=== PATIENT | male | born 1990 | race Caucasian/White ===

== ENCOUNTER 2022-01-12 21:17 | Inpatient (IN) | payer MEDICAID, OTHER ==
[~2022-01-12] VITALS: Ht 365.8 cm; Wt 99.4 kg
[2022-01-12] MEDS ORDERED: METF-911 PO (22:19)
[2022-01-12 22:20] LABS: BASOPHILS % (AUTO) 0.3 % (0.0-2.0); HEMATOCRIT 41.8 % (41-53); HEMOGLOBIN 14.7 g/dL (13.5-17.5); LYMPHOCYTES # (AUTO) 2.9 K/uL (1.0-4.8); LYMPHOCYTES % (AUTO) 26.4 % (22.0-44.0); MEAN CORPUSCULAR HEMOGLOBIN 29.4 pg (26.0-34.0); MEAN CORPUSCULAR VOLUME 84 fL (80-100); MONOCYTES # (AUTO) 0.7 K/uL (0.1-1.0); MONOCYTES % (AUTO) 6.7 % (2.0-9.0); NEUTROPHILS # (AUTO) 7.1 K/uL (1.8-7.7); NEUTROPHILS % (AUTO) 65.6 % (40.0-70.0); PLATELET COUNT (AUTO) 248 K/uL (150-450); RED BLOOD CELL COUNT(AUTO) 4.99 MIL/uL (4.50-5.90); RED CELL DISTRIBUTION WIDTH 13.3 % (11.5-14.5)
[2022-01-12] MEDS ORDERED: EMPA25TA PO (22:21)
[2022-01-12] MEDS ORDERED: LISI-894 PO (22:27)
[2022-01-12] MEDS ORDERED: GLIP10 PO (22:27)
[2022-01-12] MEDS ORDERED: DIVA-80 PO (22:27)
[2022-01-12] MEDS ORDERED: BENZ2TAB76 PO (22:27)
[2022-01-12] MEDS ORDERED: ATOR20TA86 PO (22:27)
[2022-01-12] MEDS ORDERED: QUET300T5 PO (22:27)
[2022-01-12] MEDS ORDERED: METO-558 PO (22:27)
[2022-01-12 22:29] LABS: ANION GAP 11 mmol/L (8-16); CARBON DIOXIDE 26 mmol/L (22-29); CHLORIDE 99 mmol/L (98-107); CREATININE 1.08 mg/dL (0.60-1.30); GLOMERULAR FILTR. RATE CALC > 60 mL/min (>60); GLUCOSE,RANDOM 230 mg/dL (70-110); POTASSIUM 3.4 mmol/L (3.5-5.1); SODIUM SERUM 136 mmol/L (136-145); UREA NITROGEN, BLOOD 10 mg/dL (7-18)
[2022-01-12 22:40] LABS: ALANINE AMINOTRANSFERASE 40 U/L (12-78); ALBUMIN 4.4 g/dL (3.4-5.0); ALKALINE PHOSPHATASE 83 U/L (46-116); ASPARTATE AMINOTRANSFERASE 17 U/L (15-37); BILIRUBIN,TOTAL 1.3 mg/dL (0.1-1.0); TOTAL PROTEIN, SERUM 8.3 g/dL (6.4-8.2)
[2022-01-12 22:46] LABS: COVID AG,FIA SOURCE NASAL SWAB
[2022-01-12 22:49] LABS: APPEARANCE,URINE CLEAR (CLEAR); BILIRUBIN,URINE NEGATIVE (NEGATIVE); GLUCOSE, URINE (UA) >=1000 mg/dL (NEGATIVE); KETONES,URINE TRACE mg/dL (NEGATIVE); LEUKOCYTE ESTERASE ,URINE NEGATIVE (NEGATIVE); NITRATE,URINE NEGATIVE (NEGATIVE); OCCULT BLOOD,URINE NEGATIVE (NEGATIVE); PROTEIN,URINE NEGATIVE (NEGATIVE); SPECIFIC GRAVITIY, URINE 1.029 (1.003-1.030); UROBILINOGEN,URINE <=1.0 mg/dL (<=1.0)
[2022-01-12 23:04] LABS: AMPHET/METH SCREEN,URINE NEGATIVE (NEGATIVE); BARBITURATE SCREEN, URINE NEGATIVE (NEGATIVE); BENZODIAZEPINES SCREEN,URINE NEGATIVE (NEGATIVE); CANNABINOID SCREEN,URINE NEGATIVE (NEGATIVE); COCAINE SCREEN,URINE NEGATIVE (NEGATIVE); METHADONE SCREEN, URINE NEGATIVE (NEGATIVE); OPIATE SCREEN,URINE NEGATIVE (NEGATIVE); PHENCYCLIDINE SCREEN,URINE NEGATIVE (NEGATIVE)
[2022-01-12 23:07] LABS: BACTERIA,URINE None Seen /HPF (None Seen); RBC,URINE None Seen /HPF (0-2); WBC,URINE None Seen /HPF (0-5)
[2022-01-13] MEDS ORDERED: LORazepam 1 MG TABLET PO ONE
[2022-01-13] MEDS ORDERED: QUEtiapine FUMARATE 100 MG TABLET PO ONE
[2022-01-13] MEDS ORDERED: ZOLPIDEM TARTRATE 10 MG TABLET PO PRN (01:00)
[2022-01-13] MEDS ORDERED: HALOPERIDOL 5 MG TABLET PO PRN (01:00)
[2022-01-13] MEDS ORDERED: LORazepam 2 MG TABLET PO PRN (01:00)
[2022-01-13 06:03] VITALS: BP 138/84
[2022-01-13 08:00] VITALS: BP 108/72
[2022-01-13] MEDS: METOPROLOL SUCCINATE 50 MG ER TABLET PO SCH (08:53)
[2022-01-13] MEDS: ATORVASTATIN CALCIUM 20 MG TABLET PO SCH (08:53)
[2022-01-13] MEDS: LISINOPRIL 20 MG TABLET PO SCH (08:53)
[2022-01-13] MEDS: GlipiZIDE 10 MG TABLET PO SCH (08:54)
[2022-01-13] MEDS: MetFORMIN HCL 500 MG ER TABLET PO SCH ×2 (08:54→17:32)
[2022-01-13] MEDS ORDERED: DIVALPROEX SODIUM 500 MG ER TABLET PO SCH (09:00)
[2022-01-13 16:44] VITALS: BP 104/77
[2022-01-13] MEDS: DIVALPROEX SODIUM 500 MG DR TABLET PO SCH (20:35)
[2022-01-13] MEDS: QUEtiapine FUMARATE 300 MG TABLET PO SCH (20:35)
[2022-01-13] MEDS ORDERED: POTASSIUM CHLORIDE 20 MEQ ER TABLET PO ONE ×2 (21:15)
[2022-01-13] MEDS ORDERED: MAG HYDROX/AL HYDROX/SIMETH ES 30 ML SUSPENSION UDCUP PO PRN (21:15)
[2022-01-13] MEDS ORDERED: ONDANSETRON HCL 4 MG TABLET PO PRN (21:15)
[2022-01-13] MEDS ORDERED: MAGNESIUM HYDROXIDE SUSPENSION 30 ML UDCUP PO PRN (21:15)
[2022-01-13] MEDS ORDERED: IBUPROFEN 600 MG TABLET PO PRN (21:15)
[2022-01-13] MEDS ORDERED: ACETAMINOPHEN 325 MG TABLET PO PRN (21:15)
[2022-01-13] MEDS ORDERED: CloNIDine HCL 0.1 MG TABLET PO PRN (21:15)
[2022-01-13] MEDS ORDERED: BACITRACIN 28 GM OINTMENT TP PRN (21:15)
[2022-01-13] MEDS ORDERED: ALBUTEROL SULFATE HFA 90 MCG/PUFF 8 GM INHALER IH PRN (21:15)
[2022-01-13] MEDS ORDERED: BENZOCAINE/MENTHOL LOZENGE PO PRN (21:15)
[2022-01-13] MEDS ORDERED: DEXTROSE 50%-WATER 25 GM/50 ML SYRINGE IVP PRN (21:15)
[2022-01-13] MEDS ORDERED: LOPERAMIDE HCL 2 MG CAPSULE PO PRN (21:15)
[2022-01-13] MEDS ORDERED: OMEPRAZOLE 20 MG CAPSULE PO PRN (21:15)
[2022-01-13] MEDS ORDERED: PETROLATUM,WHITE 28 GM JELLY TP PRN (21:15)
[2022-01-13] MEDS ORDERED: DOCUSATE SODIUM 100 MG CAPSULE PO PRN (21:15)
[2022-01-14 06:26] LABS: GLUCOMETER DEV NAME(LOC) 3EX.; GLUCOSE,POINT OF CARE 93 MG/DL (70-110)
[2022-01-14] MEDS: INSULIN LISPRO 100 UNITS/ML SQ PRN (06:48)
[2022-01-14] MEDS: GlipiZIDE 10 MG TABLET PO SCH (06:48)
[2022-01-14] MEDS: MetFORMIN HCL 500 MG ER TABLET PO SCH ×2 (06:48→17:08)
[2022-01-14] MEDS: ATORVASTATIN CALCIUM 20 MG TABLET PO SCH (09:17)
[2022-01-14] MEDS: DIVALPROEX SODIUM 500 MG DR TABLET PO SCH ×2 (09:17→20:27)
[2022-01-14] MEDS: METOPROLOL SUCCINATE 50 MG ER TABLET PO SCH (09:17)
[2022-01-14] MEDS: LISINOPRIL 20 MG TABLET PO SCH (09:17)
[2022-01-14 09:23] VITALS: BP 117/78
[2022-01-14 12:36] LABS: GLUCOMETER DEV NAME(LOC) 3EX.; GLUCOSE,POINT OF CARE 95 MG/DL (70-110)
[2022-01-14 16:44] VITALS: BP 100/74
[2022-01-14 17:21] LABS: GLUCOMETER DEV NAME(LOC) 3EX.; GLUCOSE,POINT OF CARE 115 MG/DL (70-110)
[2022-01-14] MEDS: QUEtiapine FUMARATE 300 MG TABLET PO SCH (20:27)
[2022-01-15 06:16] LABS: GLUCOMETER DEV NAME(LOC) 3EX.; GLUCOSE,POINT OF CARE 115 MG/DL (70-110)
[2022-01-15] MEDS: MetFORMIN HCL 500 MG ER TABLET PO SCH ×2 (07:01→17:56)
[2022-01-15] MEDS: GlipiZIDE 10 MG TABLET PO SCH (07:01)
[2022-01-15] MEDS: INSULIN LISPRO 100 UNITS/ML SQ PRN (07:04)
[2022-01-15] MEDS: DIVALPROEX SODIUM 500 MG DR TABLET PO SCH ×2 (08:28→20:32)
[2022-01-15] MEDS: ATORVASTATIN CALCIUM 20 MG TABLET PO SCH (08:28)
[2022-01-15] MEDS: LISINOPRIL 20 MG TABLET PO SCH (08:28)
[2022-01-15] MEDS: METOPROLOL SUCCINATE 50 MG ER TABLET PO SCH (09:09)
[2022-01-15 09:57] VITALS: BP 121/66
[2022-01-15 20:26] LABS: GLUCOMETER DEV NAME(LOC) 3EX.; GLUCOSE,POINT OF CARE 101 MG/DL (70-110)
[2022-01-15] MEDS: QUEtiapine FUMARATE 300 MG TABLET PO SCH (20:32)
[2022-01-16] MEDS: INSULIN LISPRO 100 UNITS/ML SQ PRN ×2 (06:25→06:43)
[2022-01-16] MEDS: GlipiZIDE 10 MG TABLET PO SCH (06:25)
[2022-01-16 06:31] LABS: GLUCOMETER DEV NAME(LOC) 3EX.; GLUCOSE,POINT OF CARE 102 MG/DL (70-110)
[2022-01-16] MEDS: MetFORMIN HCL 500 MG ER TABLET PO SCH ×2 (06:43→17:30)
[2022-01-16] MEDS: ATORVASTATIN CALCIUM 20 MG TABLET PO SCH (08:38)
[2022-01-16] MEDS: DIVALPROEX SODIUM 500 MG DR TABLET PO SCH ×2 (08:38→20:02)
[2022-01-16] MEDS: LISINOPRIL 20 MG TABLET PO SCH (09:00)
[2022-01-16] MEDS: METOPROLOL SUCCINATE 50 MG ER TABLET PO SCH (09:00)
[2022-01-16 11:51] LABS: GLUCOMETER DEV NAME(LOC) 3EX.; GLUCOSE,POINT OF CARE 72 MG/DL (70-110)
[2022-01-16 16:00] VITALS: BP 111/66
[2022-01-16 17:42] LABS: GLUCOMETER DEV NAME(LOC) 3EX.; GLUCOSE,POINT OF CARE 108 MG/DL (70-110)
[2022-01-16] MEDS ORDERED: QUET300T19 PO (17:45)
[2022-01-16] MEDS ORDERED: DIVA-112 PO (17:45)
[2022-01-16] MEDS: QUEtiapine FUMARATE 300 MG TABLET PO SCH (20:02)
[2022-01-16 20:36] LABS: GLUCOMETER DEV NAME(LOC) 3EX.; GLUCOSE,POINT OF CARE 106 MG/DL (70-110)
[2022-01-17] MEDS: INSULIN LISPRO 100 UNITS/ML SQ PRN (06:52)
[2022-01-17] MEDS: GlipiZIDE 10 MG TABLET PO SCH (06:57)
[2022-01-17] MEDS: MetFORMIN HCL 500 MG ER TABLET PO SCH (07:00)
[2022-01-17] MEDS: LISINOPRIL 20 MG TABLET PO SCH (08:44)
[2022-01-17] MEDS: DIVALPROEX SODIUM 500 MG DR TABLET PO SCH (08:44)
[2022-01-17] MEDS: METOPROLOL SUCCINATE 50 MG ER TABLET PO SCH (08:44)
[2022-01-17] MEDS: ATORVASTATIN CALCIUM 20 MG TABLET PO SCH (08:44)
[2022-01-17 08:53] VITALS: BP 114/75
== END 2022-01-17 14:25 | disposition home or self-care (01) | DRG 750 ==
LOC: EMS 21:26 → 3EI 01-13 02:45
PROVIDERS: ADMIT Psychiatry & Neurology Psychiatry; ATTEND Psychiatry & Neurology Psychiatry
DX: F25.9 Schizoaffective disorder, unspecified (principal); Z91.14 Patient's other noncompliance with medication regimen; E11.65 Type 2 diabetes mellitus with hyperglycemia; E78.00 Pure hypercholesterolemia, unspecified; F41.9 Anxiety disorder, unspecified; G47.00 Insomnia, unspecified; I10 Essential (primary) hypertension; J45.909 Unspecified asthma, uncomplicated; K59.00 Constipation, unspecified; Z20.822 Contact with and (suspected) exposure to COVID-19; Z87.891 Personal history of nicotine dependence; Z79.4 Long term (current) use of insulin
CPT/HCPCS: 80053; 81001; 81003; 82962; 84132; 85025; 87081; 99285; G0480